=== PATIENT | male | born 1985 | race Caucasian/White ===

== ENCOUNTER 2017-11-20 08:38 | Emergency (ER) | payer SELFPAY ==
[~2017-11-20] VITALS: Ht 180.3 cm; Wt 79.8 kg
[~2017-11-20 08:38] MED LIST: CEP250 PO; CEP500 PO; CYCL10TA29 PO; DIA5 PO; DIVA500T98 PO; GABA-549 PO; HYDR-3087 PO; KET10 PO; LACO150T4 PO; LAMO150T36 PO; LAMOT150PT PO; LEVE-14 PO; LEVE750T48 PO; LOR5/325 PO; MECL-81 PO; METH4TAB66 PO; OMEP-218 PO; OMEP40CA48 PO; OMEP40CA79 PO; ONDA4TAB PO; OXYC-865 PO; PAN40 PO; PER PO; POTA20TA85 PO; RAN150 PO; RANI-315 PO; SEIZURE PO; SUCR1ORA13 PO; SUCR1TAB51 PO; TUM500 PO; VENL37.594 PO
--- NOTE | 2017-11-20 08:57 | ER Report ---
History and Physical Time Seen By MD: 08:52 Hx. of Stated Complaint: PATIENT STATES THAT HE HAD ALOT OF SEIZURES LAST NIGHT AND STATES THAT HE FEELS OUT OF IT RIGHT NOW WITH AN HEAD ACHE HPI/ROS CC: Seizure HPI: 31-year-old male with a past medical history of seizures versus pseudoseizures. He was last in the emergency department on 11/19/2016 for the same complaint. He was started on That time. He was referred to neurology for continued workup. He presents today stating that he had multiple seizures last night. He does appear to be slightly postictal. There was no loss of bowel or bladder and no oral lacerations or biting of the tongue or cheek. Patient states that he has not been taking his Keppra due to financial reasons. He states that it spent 3 days since he's had his Keppra. He does smell like alcohol. He also is on narcotics for back pain. Pupils are constricted but reactive. He is alert and oriented by 3. [place] Coma Scale is 15. She is stating that he has generalized muscular body aches secondary to his repeated seizures. He is rating his body aches as a 6-7 out of 10. Aching in nature constant. No alleviating factors. ROS: 12 point review of systems essentially negative other than what's mentioned in history of present illness. NURSES AND OLD MEDICAL RECORDS: Reviewed PMH: Reviewed SURGICAL HX: Reviewed FAMILY HX: Noncontributory SOCIAL HX: Patient continues to drink alcohol and denies illicit drugs. VITAL SIGNS: Reviewed CONSTITUTIONAL: 31-year-old male who is intoxicated but also appears postictal. PHYSICAL EXAM: HEENT: Pupils equal round reactive to light and accommodate, EOMI, tympanic membranes pearly white umbo present with good light reflex. Lips dry mucous membranes moist gums nonbleeding uvula midline and rises equally with phonation, oropharynx noninjected, teeth intact. NECK: Neck supple, thyroid not appreciated, anterior and posterior cervical lymphadenopathy not appreciated. Trachea midline and rises equally with phonation. CARDIAC: S1-S2 regular rate rhythm no murmurs rubs or gallops. LUNGS: Lungs clear bilaterally posteriorly in all martinez. Good air movement. ABDOMEN: Abdomen soft, nondistended, bowel sounds active in all 4 quadrants, no bruits noted, no CVA tenderness. MUSCULOSKELETAL: Strength 5 out of 5 x 4 extremities, no deformities noted. NEUROLOGIC: Patient alert and oriented by 3. Cranial nerves II through XII are intact. Allergies: Coded Allergies: fentanyl (Verified Allergy, Unknown, 11/17/17) ketorolac (Verified Allergy, Unknown, 11/17/17) Home Meds Active Scripts Oxycodone Hcl/Acetaminophen (PERCOCET 5-325 MG TABLET) 1 Each Tablet, 1 EACH PO Q6H for PAIN, #40 TAB 0 Refills Prov:ALLIE TAYLOR MD 11/17/17 Diazepam (VALIUM) 5 Mg Tablet, 5 MG PO 2-3XD, #30 TAB 0 Refills Prov:ALLIE TAYLOR MD 11/17/17 Methylprednisolone (METHYLPREDNISOLONE) 4 Mg Tab.ds.pk, 4 MG PO DIRECTED, #1 PACK 0 Refills Prov:SHEELA RODRIGUEZ MD 11/12/17 Cyclobenzaprine Hcl (CYCLOBENZAPRINE HCL) 10 Mg Tablet, 10 MG PO Q8H Y for MUSCLE SPASMS, #20 TAB 0 Refills Prov:SHEELA RODRIGUEZ MD 11/12/17 Gabapentin (GABAPENTIN) 300 Mg Capsule, 300 MG PO DIRECTED, #150 CAPSULE Take 1 tab in the morning and at lunch and then 3 tabs at night. Prov:MYCHAL GARCIA [facility] 11/18/16 Lamotrigine (LAMICTAL) 150 Mg Tablet, 150 MG PO BID, #60 TAB Prov:MYCHAL GARCIA [facility] 11/18/16 Reported Medications Lacosamide (VIMPAT) 150 Mg Tablet, 150 MG PO DAILY 05/29/16 Omeprazole Magnesium (Prilosec Otc) 20 Mg Tablet.dr, 20 MG PO QDAY, 0 Refills 01/09/11 Discontinued Scripts Ondansetron (ZOFRAN ODT) 4 Mg Tab.rapdis, 4 MG PO Q6H Y for NAUSEA/VOMITING, # 20 TAB.MIGUE 0 Refills Prov:SHEELA RODRIGUEZ MD 11/12/17 Levetiracetam (LEVETIRACETAM) 750 Mg Tablet, 750 MG PO BID, #60 TAB Prov:MYCHAL GARCIA [facility] 11/18/16 Hydrocodone Bit/Acetaminophen (HYDROCODON-ACETAMINOPHEN 5-325) 1 Each Tablet, 1 EACH PO Q4H Y for PAIN, #12 TAB 0 Refills Prov:SHEELA RODRIGUEZ MD 11/12/17 Hx Smoking: Yes Smoking Status: Current: Some Days Smoker Exposure to Second Hand Smoke?: Yes Hx Substance Use Disorder: No Hx Alcohol Use: No Constitutional Vital Sign - Last 24 Hours 11/20/17 11/20/17 11/20/17 11/20/17 08:44 08:45 09:00 09:08 Temp 98.5 Pulse 79 82 Resp 18 15 B/P (MAP) 130/86 (101) 130/86 108/90 (96) Pulse Ox 95 93 O2 Delivery Room Air 11/20/17 09:34 O2 Flow Rate 1.0 Intake and Output 11/20/17 11/20/17 11/21/17 15:00 23:00 07:00 Intake Total 1110 ml Balance 1110 ml Medical Decision Making Data Points Result Diagram: 11/20/1715 11/20/17914 Laboratory Hematology Test 11/20/17 05:43 11/20/17 09:15 Urine Opiates Screen Positive Urine Barbiturates Screen Negative Ur Tricyclic Antidepressants Screen Negative Urine Phencyclidine Screen Negative Urine Amphetamines Screen Negative Urine Benzodiazepines Screen Positive Urine Cocaine Screen Negative Urine Cannabinoids Screen Positive Red Blood Count 4.65 M/uL (4.00-5.60) Mean Corpuscular Volume 96.8 fL (80.0-96.0) Mean Corpuscular Hemoglobin 33.4 pg (26.0-33.0) Mean Corpuscular Hemoglobin Concent 34.5 g/dL (32.0-36.0) Red Cell Distribution Width 13.1 % (11.5-14.5) Mean Platelet Volume 7.6 fL (7.2-11.1) Neutrophils (%) (Auto) 74.2 % (39.4-72.5) Lymphocytes (%) (Auto) 21.0 % (17.6-49.6) Monocytes (%) (Auto) 4.0 % (4.1-12.4) Eosinophils (%) (Auto) 0.5 % (0.4-6.7) Basophils (%) (Auto) 0.3 % (0.3-1.4) Nucleated RBC Relative Count (auto) 0.0 /100WBC Neutrophils # (Auto) 10.1 K/uL (2.0-7.4) Lymphocytes # (Auto) 2.9 K/uL (1.3-3.6) Monocytes # (Auto) 0.5 K/uL (0.3-1.0) Eosinophils # (Auto) 0.1 K/uL (0.0-0.5) Basophils # (Auto) 0.0 K/uL (0.0-0.1) Nucleated RBC Absolute Count (auto) 0.00 K/uL Peripheral Blood Smear No Y/N Sodium Level 141 mmol/L (137-145) Potassium Level 4.0 mmol/L (3.5-5.0) Chloride Level 103 mmol/L (98-107) Carbon Dioxide Level 26 mmol/L (22-30) Blood Urea Nitrogen 10 mg/dl (9-21) Creatinine 0.70 mg/dl (0.66-1.25) Glomerular Filtration Rate Calc > 60.0 Random Glucose 117 mg/dl (75-110) Lactate 2.2 mmol/L (0.7-2.1) Calcium Level 9.2 mg/dl (8.4-10.2) Magnesium Level 1.8 mg/dl (1.7-2.2) Total Bilirubin 0.5 mg/dl (0.2-1.3) Aspartate Amino Transf (AST/SGOT) 21 U/L (0-35) Alanine Aminotransferase (ALT/SGPT) 24 U/L (0-56) Alkaline Phosphatase 65 U/L (0-126) Total Protein 7.0 gm/dl (6.3-8.2) Albumin 4.2 g/dl (3.5-5.0) Carbamazepine (Tegretol) Level < 3.0 ug/ml Carbamazepine Time Since Last Dose ? Carbamazepine Last Dose Date unknown Serum Alcohol 46 mg/dl Chemistry Test 11/20/17 05:43 11/20/17 09:15 Urine Opiates Screen Positive Urine Barbiturates Screen Negative Ur Tricyclic Antidepressants Screen Negative Urine Phencyclidine Screen Negative Urine Amphetamines Screen Negative Urine Benzodiazepines Screen Positive Urine Cocaine Screen Negative Urine Cannabinoids Screen Positive White Blood Count 13.7 k/uL (4.5-11.0) Red Blood Count 4.65 M/uL (4.00-5.60) Hemoglobin 15.5 g/dL (14.0-18.0) Hematocrit 45.0 % (42.0-52.0) Mean Corpuscular Volume 96.8 fL (80.0-96.0) Mean Corpuscular Hemoglobin 33.4 pg (26.0-33.0) Mean Corpuscular Hemoglobin Concent 34.5 g/dL (32.0-36.0) Red Cell Distribution Width 13.1 % (11.5-14.5) Platelet Count 297 K/uL (150-450) Mean Platelet Volume 7.6 fL (7.2-11.1) Neutrophils (%) (Auto) 74.2 % (39.4-72.5) Lymphocytes (%) (Auto) 21.0 % (17.6-49.6) Monocytes (%) (Auto) 4.0 % (4.1-12.4) Eosinophils (%) (Auto) 0.5 % (0.4-6.7) Basophils (%) (Auto) 0.3 % (0.3-1.4) Nucleated RBC Relative Count (auto) 0.0 /100WBC Neutrophils # (Auto) 10.1 K/uL (2.0-7.4) Lymphocytes # (Auto) 2.9 K/uL (1.3-3.6) Monocytes # (Auto) 0.5 K/uL (0.3-1.0) Eosinophils # (Auto) 0.1 K/uL (0.0-0.5) Basophils # (Auto) 0.0 K/uL (0.0-0.1) Nucleated RBC Absolute Count (auto) 0.00 K/uL Peripheral Blood Smear No Y/N Glomerular Filtration Rate Calc > 60.0 Lactate 2.2 mmol/L (0.7-2.1) Calcium Level 9.2 mg/dl (8.4-10.2) Magnesium Level 1.8 mg/dl (1.7-2.2) Total Bilirubin 0.5 mg/dl (0.2-1.3) Aspartate Amino Transf (AST/SGOT) 21 U/L (0-35) Alanine Aminotransferase (ALT/SGPT) 24 U/L (0-56) Alkaline Phosphatase 65 U/L (0-126) Total Protein 7.0 gm/dl (6.3-8.2) Albumin 4.2 g/dl (3.5-5.0) Carbamazepine (Tegretol) Level < 3.0 ug/ml Carbamazepine Time Since Last Dose ? Carbamazepine Last Dose Date unknown Serum Alcohol 46 mg/dl Toxicology Test 11/20/17 05:43 11/20/17 09:15 Urine Opiates Screen Positive Urine Barbiturates Screen Negative Ur Tricyclic Antidepressants Screen Negative Urine Phencyclidine Screen Negative Urine Amphetamines Screen Negative Urine Benzodiazepines Screen Positive Urine Cocaine Screen Negative Urine Cannabinoids Screen Positive Carbamazepine (Tegretol) Level < 3.0 ug/ml Carbamazepine Time Since Last Dose ? Carbamazepine Last Dose Date unknown Serum Alcohol 46 mg/dl ED Course/Re-evaluation ED Course UDS positive for opioids and benzodiazepines, cannabinoids, alcohol. Patient requesting pain medication. Patient states that he wants ibuprofen but he is reportedly allergic to Ketalorac. Patient received Cerebyx 500 mg. The patient was instructed to meat pickler his Keppra medication. He is also instructed to follow -up with his PCP. Patient will plan and agreement. I called her pharmacy and his scripts are active but he has not picked them up. Re-evaluation Medical decision making. Seizures versus pseudoseizures. Patient with illicit drugs and alcohol. Decision to Disposition Date: Nov 20, 2017 Decision to Disposition Time: 10:41 Depart Departure Latest Vital Signs Vital Signs Date Time Temp Pulse Resp B/P (MAP) Pulse Ox O2 Delivery O2 Flow Rate FiO2 11/20/17 09:34 1.0 11/20/17 09:08 82 15 93 11/20/17 09:00 108/90 (96) 11/20/17 08:45 98.5 Room Air Impression: Primary Impression: Pseudoseizure Condition: Improved Disposition: HOME OR SELF-CARE Patient Instructions: Recurrent Seizures in Adults (ED) Additional Instructions: You have prescriptions at the pharmacy. 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 Follow-up with the regular physician. You are allergic to Toradol therefore I cannot give you ibuprofen as it is in the same family. I and the staff wanted to thank you for allowing us to take care of your needs today in the emergency department at [facility]. We have tried to answer all of your questions and concerns. Please feel free to return to the emergency department for any further concerns or unanswered questions. JAMES FARMER MD Nov 20, 2017 08:57
[2017-11-20] MEDS ORDERED: NS(*) 0.9% 1000 ML BAG 1,000 ML IV ONE (09:03)
[2017-11-20] MEDS ORDERED: FOSPHENYTOIN(*) 500 MG/10 ML V 500 MG in NS(*) 0.9% 100 ML BAG 100 ML IVPB ONE (09:05)
[2017-11-20 09:25] LABS: PLATELET COUNT, AUTOMATED 297 K/uL (150-450)
[2017-11-20 10:30] VITALS: BP 112/77
== END 2017-11-20 10:56 | disposition home or self-care (01) ==
LOC: ER 08:49
DX: R56.9 Unspecified convulsions (principal)
CPT/HCPCS: 80156; 80177; 80305; 80320; 83605; 83735; 84146; 85025; 96365; 99284; J7030; J7050; Q2009; 82040; 82247; 82310; 82374; 82435; 82565; 82947; 84075; 84132; 84155; 84295; 84450; 84460; 84520

== ENCOUNTER 2018-02-27 14:23 | Emergency (ER) | payer SELFPAY ==
[2018-02-27] MEDS ORDERED: ESOM40CA42 PO (14:34)
[2018-02-27] MEDS ORDERED: NS(*) 0.9% 1000 ML BAG 1,000 ML IV ONE (14:52)
[2018-02-27 15:11] LABS: PLATELET COUNT, AUTOMATED 220 K/uL (150-450)
[2018-02-27] MEDS ORDERED: ONDANSETRON 4 MG/2 ML VIAL IVP ONE (15:20)
[2018-02-27] MEDS ORDERED: IOPAMIDOL 76% 75 ML INFUS BTL 75 ML ONE (15:31)
[2018-02-27] MEDS ORDERED: LIDOCAINE 2% VISC SLN 15ML UDC PO ONE (15:45)
[2018-02-27] MEDS ORDERED: MAG HYD/AL HYD/SIMETH 30ML UDC PO ONE (15:45)
--- NOTE | 2018-02-27 15:54 | RADIOLOGY IMAGING REPORT ---
FACILITY: [facility] - [place], [place] PATIENT NAME: Gaudencio Hemphill : 1985 MR: [id number] V: [id number] EXAM DATE: ORDERING PHYSICIAN: MYCHAL GARCIA TECHNOLOGIST: Location: [facility] Patient: Gaudencio Hemphill : 1985 Visit/Account:[id number] Date of Sevice: 02/27/2018 EXAMINATION: CT abdomen and pelvis with IV contrast HISTORY: Abdominal pain. TECHNIQUE: Axial CT images of the abdomen and pelvis were obtained with IV contrast, with coronal a nd sagittal 2D reconstructed images. One of the following dose optimization techniques was utilized in the performance of this exam: Autom ated exposure control; adjustment of the mA and/or kV according to the patient's size; or use of an i terative reconstruction technique. Specific details can be referenced in the facility's radiology C T exam operational policy. Contrast: 75 mL of IV [id number]-[id number]. COMPARISON: None. FINDINGS: Liver: Negative. Gallbladder and bile ducts: Cholecystectomy. No bile duct dilatation. Spleen: Negative. Pancreas: Negative. Adrenal glands: Negative. Kidneys: Negative. No hydronephrosis or urinary calculi. The kidneys enhance normally. Bowel and peritoneum: The small bowel and colon are normal in caliber, without evidence of obstructi on or any focal inflammatory process. Unremarkable appendix in the right pelvis. No free fluid or arnaldo e intraperitoneal air. Pelvic structures: Negative. Lymph node assessment: Negative. Vessels: Negative. Musculoskeletal: Negative. Body wall: Negative. Lung bases: Negative. IMPRESSION: 1. No CT evidence of acute intra-abdominal pathology. No source of abdominal pain is identified. 2. Normal appendix. 3. Prior cholecystectomy. Report Dictated By: Donnie Castillo MD at 02/27/2018 3:45 PM Report E-Signed By: Donnie Castillo MD at 02/27/2018 3:49 PM WSN:[id number]
[2018-02-27] MEDS ORDERED: SUCR1TAB85 PO (16:35)
[2018-02-27] MEDS ORDERED: OMEP40CA48 PO (16:35)
--- NOTE | 2018-02-27 16:38 | ER Report ---
History and Physical Time Seen By MD: 14:45 Hx. of Stated Complaint: pt reports epigastric pain for 1.5 weeks, dark red blood in stool HPI/ROS CHIEF COMPLAINT: Abdominal pain HISTORY OF PRESENT ILLNESS: 32-year-old male patient presents to emergency room with complaint of epigastric abdominal pain. Patient states this been going on for the past 10 days. He states this seems even worse. He also has noticed blood in his stool. He states that he has had dark red blood in his stool for the last several days. Patient states that he does have a history of a cholecystectomy. He states he does have his appendix. He denies having any fevers, chills. Patient states he has been taking omeprazole. He states his also been taking Carafate twice a day. He states that his been no improvement with that. REVIEW OF SYSTEMS: Respiratory: No cough, no dyspnea. Cardiovascular: No chest pain, no palpitations. Gastrointestinal: As noted above Musculoskeletal: No back pain. Allergies: Coded Allergies: fentanyl (Verified Allergy, Unknown, 02/27/18) ketorolac (Verified Allergy, Unknown, 02/27/18) Home Meds Active Scripts Promethazine Hcl (PROMETHAZINE HCL) 25 Mg Tablet, 25 MG PO Q8H Y for NAUSEA/ VOMITING, #12 TAB Prov:MY[facility]AL GARCIA [facility] 02/27/18 Omeprazole (OMEPRAZOLE) 40 Mg Capsule.dr, 40 MG PO BID, #60 CAP Prov:MYCHAL GARCIA [facility] 02/27/18 Sucralfate (CARAFATE) 1 Gm Tablet, 1 GM PO QID, #60 TAB Take before meals and at bedtime. Crush the tablet and mix with water before taking. Prov:MYCHAL GARCIA [facility] 02/27/18 Gabapentin (GABAPENTIN) 300 Mg Capsule, 300 MG PO DIRECTED, #150 CAPSULE Take 1 tab in the morning and at lunch and then 3 tabs at night. Prov:MYCHAL GARCIA [facility] 11/18/16 Lamotrigine (LAMICTAL) 150 Mg Tablet, 150 MG PO BID, #60 TAB Prov:MYCHAL GARCIA [facility] 11/18/16 Reported Medications Esomeprazole Magnesium (NEXIUM) 40 Mg Capsule.dr, 1 CAP PO QDAY, CAP 02/27/18 Lacosamide (VIMPAT) 150 Mg Tablet, 150 MG PO DAILY 05/29/16 Omeprazole Magnesium (Prilosec Otc) 20 Mg Tablet.dr, 20 MG PO QDAY, 0 Refills 01/09/11 Discontinued Scripts Oxycodone Hcl/Acetaminophen (PERCOCET 5-325 MG TABLET) 1 Each Tablet, 1 EACH PO Q6H for PAIN, #40 TAB 0 Refills Prov:ALLIE TAYLOR MD 11/17/17 Diazepam (VALIUM) 5 Mg Tablet, 5 MG PO 2-3XD, #30 TAB 0 Refills Prov:ALLIE TALYOR MD 11/17/17 Methylprednisolone (METHYLPREDNISOLONE) 4 Mg Tab.ds.pk, 4 MG PO DIRECTED, #1 PACK 0 Refills Prov:SHEELA RODRIGUEZ MD 11/12/17 Cyclobenzaprine Hcl (CYCLOBENZAPRINE HCL) 10 Mg Tablet, 10 MG PO Q8H Y for MUSCLE SPASMS, #20 TAB 0 Refills Prov:SHEELA RODRIGUEZ MD 11/12/17 Past Medical/Surgical History Patient has past medical history of TBI, seizures, or soft tissues, pancreatitis , reflux, back pain. Patient has a surgical history of elbow surgery. Patient has a family medical history of cancer. Reviewed Nurses Notes: Yes Hx Smoking: Yes Smoking Status: Current: Some Days Smoker Exposure to Second Hand Smoke?: Yes Hx Substance Use Disorder: No Hx Alcohol Use: No Constitutional Vital Sign - Last 24 Hours 02/27/18 02/27/18 02/27/18 02/27/18 14:23 14:29 14:38 14:53 Temp 98.0 Pulse 69 81 83 Resp 16 B/P (MAP) 146/92 146/92 (110) Pulse Ox 93 94 95 O2 Delivery Room Air 02/27/18 02/27/18 02/27/18 02/27/18 15:00 15:08 15:13 15:18 Pulse 71 70 75 B/P (MAP) 131/86 (101) Pulse Ox 95 92 98 02/27/18 02/27/18 15:48 16:42 Pulse 71 77 Resp 16 B/P (MAP) 136/72 (93) Pulse Ox 95 93 O2 Delivery Room Air Physical Exam General Appearance: The patient is alert, has no immediate need for airway protection and no current signs of toxicity. Appears uncomfortable, patient was rubbing his abdomen. Respiratory: Chest is non tender, lungs are clear to auscultation. Cardiac: regular rate and rhythm Gastrointestinal: Abdomen is soft and tender in the epigastric and right upper quadrant, no masses, bowel sounds normal. Musculoskeletal: Neck: Neck is supple and non tender. Extremities have full range of motion and are non tender. Skin: No rashes or lesions. DIFFERENTIAL DIAGNOSIS: After history and physical exam differential diagnosis was considered for abdominal pain including but not limited to appendicitis, cholecystitis, gastritis and urinary tract infection. Included differential is pancreatitis, GI bleed. Medical Decision Making Data Points Result Diagram: 02/27/18 1440 02/27/18 1440 Laboratory Hematology Test 02/27/18 14:40 02/27/18 16:08 Red Blood Count 4.12 M/uL (4.00-5.60) Mean Corpuscular Volume 96.7 fL (80.0-96.0) Mean Corpuscular Hemoglobin 34.6 pg (26.0-33.0) Mean Corpuscular Hemoglobin Concent 35.8 g/dL (32.0-36.0) Red Cell Distribution Width 12.4 % (11.5-14.5) Mean Platelet Volume 8.3 fL (7.2-11.1) Neutrophils (%) (Auto) 53.1 % (39.4-72.5) Lymphocytes (%) (Auto) 39.8 % (17.6-49.6) Monocytes (%) (Auto) 5.5 % (4.1-12.4) Eosinophils (%) (Auto) 1.1 % (0.4-6.7) Basophils (%) (Auto) 0.5 % (0.3-1.4) Nucleated RBC Relative Count (auto) 0.0 /100WBC Neutrophils # (Auto) 4.1 K/uL (2.0-7.4) Lymphocytes # (Auto) 3.1 K/uL (1.3-3.6) Monocytes # (Auto) 0.4 K/uL (0.3-1.0) Eosinophils # (Auto) 0.1 K/uL (0.0-0.5) Basophils # (Auto) 0.0 K/uL (0.0-0.1) Nucleated RBC Absolute Count (auto) 0.00 K/uL Urine Color Yellow Urine Clarity Slightly-cloudy Urine pH 5.0 pH (4.8-9.5) Urine Specific [place] 1.020 Urine Protein Negative mg/dL (NEGATIVE) Urine Glucose (UA) Negative mg/dL (NEGATIVE) Urine Ketones Negative mg/dL (NEGATIVE) Urine Blood Negative (NEGATIVE) Urine Nitrite Negative (NEGATIVE) Urine Bilirubin Negative (NEGATIVE) Urine Urobilinogen Negative mg/dL (0.2-1.9) Urine Leukocyte Esterase Negative (NEGATIVE) Urine RBC 1 /HPF (0-2/HPF) Urine WBC 1 /HPF (0-5/HPF) Urine Squamous Epithelial Cells None /LPF (</=FEW) Urine Bacteria Negative /HPF (NONE-FEW) Urine Mucus Few /HPF (NONE-FEW) Sodium Level 138 mmol/L (137-145) Potassium Level 3.4 mmol/L (3.5-5.0) Chloride Level 102 mmol/L (98-107) Carbon Dioxide Level 22 mmol/L (22-30) Blood Urea Nitrogen 12 mg/dl (9-21) Creatinine 0.70 mg/dl (0.66-1.25) Glomerular Filtration Rate Calc > 60.0 Random Glucose 137 mg/dl (75-110) Calcium Level 8.6 mg/dl (8.4-10.2) Total Bilirubin 0.3 mg/dl (0.2-1.3) Aspartate Amino Transf (AST/SGOT) 19 U/L (0-35) Alanine Aminotransferase (ALT/SGPT) 20 U/L (0-56) Alkaline Phosphatase 46 U/L (0-126) C-Reactive Protein < 0.5 mg/dl (<1.0) Total Protein 6.5 gm/dl (6.3-8.2) Albumin 3.8 g/dl (3.5-5.0) Amylase Level 132 U/L (0-110) Lipase 295 U/L (23-300) Stool Occult Blood (IFOB) Positive (NEGATIVE) Chemistry Test 02/27/18 14:40 02/27/18 16:08 White Blood Count 7.7 k/uL (4.5-11.0) Red Blood Count 4.12 M/uL (4.00-5.60) Hemoglobin 14.3 g/dL (14.0-18.0) Hematocrit 39.9 % (42.0-52.0) Mean Corpuscular Volume 96.7 fL (80.0-96.0) Mean Corpuscular Hemoglobin 34.6 pg (26.0-33.0) Mean Corpuscular Hemoglobin Concent 35.8 g/dL (32.0-36.0) Red Cell Distribution Width 12.4 % (11.5-14.5) Platelet Count 220 K/uL (150-450) Mean Platelet Volume 8.3 fL (7.2-11.1) Neutrophils (%) (Auto) 53.1 % (39.4-72.5) Lymphocytes (%) (Auto) 39.8 % (17.6-49.6) Monocytes (%) (Auto) 5.5 % (4.1-12.4) Eosinophils (%) (Auto) 1.1 % (0.4-6.7) Basophils (%) (Auto) 0.5 % (0.3-1.4) Nucleated RBC Relative Count (auto) 0.0 /100WBC Neutrophils # (Auto) 4.1 K/uL (2.0-7.4) Lymphocytes # (Auto) 3.1 K/uL (1.3-3.6) Monocytes # (Auto) 0.4 K/uL (0.3-1.0) Eosinophils # (Auto) 0.1 K/uL (0.0-0.5) Basophils # (Auto) 0.0 K/uL (0.0-0.1) Nucleated RBC Absolute Count (auto) 0.00 K/uL Urine Color Yellow Urine Clarity Slightly-cloudy Urine pH 5.0 pH (4.8-9.5) Urine Specific [place] 1.020 Urine Protein Negative mg/dL (NEGATIVE) Urine Glucose (UA) Negative mg/dL (NEGATIVE) Urine Ketones Negative mg/dL (NEGATIVE) Urine Blood Negative (NEGATIVE) Urine Nitrite Negative (NEGATIVE) Urine Bilirubin Negative (NEGATIVE) Urine Urobilinogen Negative mg/dL (0.2-1.9) Urine Leukocyte Esterase Negative (NEGATIVE) Urine RBC 1 /HPF (0-2/HPF) Urine WBC 1 /HPF (0-5/HPF) Urine Squamous Epithelial Cells None /LPF (</=FEW) Urine Bacteria Negative /HPF (NONE-FEW) Urine Mucus Few /HPF (NONE-FEW) Glomerular Filtration Rate Calc > 60.0 Calcium Level 8.6 mg/dl (8.4-10.2) Total Bilirubin 0.3 mg/dl (0.2-1.3) Aspartate Amino Transf (AST/SGOT) 19 U/L (0-35) Alanine Aminotransferase (ALT/SGPT) 20 U/L (0-56) Alkaline Phosphatase 46 U/L (0-126) C-Reactive Protein < 0.5 mg/dl (<1.0) Total Protein 6.5 gm/dl (6.3-8.2) Albumin 3.8 g/dl (3.5-5.0) Amylase Level 132 U/L (0-110) Lipase 295 U/L (23-300) Stool Occult Blood (IFOB) Positive (NEGATIVE) Urinalysis Test 02/27/18 14:40 Urine Color Yellow Urine Clarity Slightly-cloudy Urine pH 5.0 pH (4.8-9.5) Urine Specific [place] 1.020 Urine Protein Negative mg/dL (NEGATIVE) Urine Glucose (UA) Negative mg/dL (NEGATIVE) Urine Ketones Negative mg/dL (NEGATIVE) Urine Blood Negative (NEGATIVE) Urine Nitrite Negative (NEGATIVE) Urine Bilirubin Negative (NEGATIVE) Urine Urobilinogen Negative mg/dL (0.2-1.9) Urine Leukocyte Esterase Negative (NEGATIVE) Urine RBC 1 /HPF (0-2/HPF) Urine WBC 1 /HPF (0-5/HPF) Urine Squamous Epithelial Cells None /LPF (</=FEW) Urine Bacteria Negative /HPF (NONE-FEW) Urine Mucus Few /HPF (NONE-FEW) EKG/Imaging Imaging EXAMINATION: CT abdomen and pelvis with IV contrast HISTORY: Abdominal pain. TECHNIQUE: Axial CT images of the abdomen and pelvis were obtained with IV contrast, with coronal and sagittal 2D reconstructed images. One of the following dose optimization techniques was utilized in the performance of this exam: Automated exposure control; adjustment of the mA and/ or kV according to the patient's size; or use of an iterative reconstruction technique. Specific details can be referenced in the facility's radiology CT exam operational policy. Contrast: 75 mL of IV [id number]. COMPARISON: None. FINDINGS: Liver: Negative. Gallbladder and bile ducts: Cholecystectomy. No bile duct dilatation. Spleen: Negative. Pancreas: Negative. Adrenal glands: Negative. Kidneys: Negative. No hydronephrosis or urinary calculi. The kidneys enhance normally. Bowel and peritoneum: The small bowel and colon are normal in caliber, without evidence of obstruction or any focal inflammatory process. Unremarkable appendix in the right pelvis. No free fluid or free intraperitoneal air. Pelvic structures: Negative. Lymph node assessment: Negative. Vessels: Negative. Musculoskeletal: Negative. Body wall: Negative. Lung bases: Negative. IMPRESSION: 1. No CT evidence of acute intra-abdominal pathology. No source of abdominal pain is identified. 2. Normal appendix. 3. Prior cholecystectomy. Report Dictated By: Donnie Castillo MD at 02/27/2018 3:45 PM Report E-Signed By: Donnie Castillo MD at 02/27/2018 3:49 PM ED Course/Re-evaluation ED Course Patient was admitted to exam room, history and physical were obtained. Differential diagnoses were considered. On examination patient has tenderness to the epigastric and right upper quadrant. A CBC, CMP, urinalysis, CT scan of the abdomen and pelvis, amylase, lipase were done. Lab results were unremarkable , patient did have an occult positive stool. CT scan of abdomen and pelvis showed no acute findings. I believe that he does have an ulcer which is causing the GI bleed. We will go ahead and put him on omeprazole 40 mg twice a day, as patient is currently taking 40 mg a day. We will also have him take Carafate 4 times a day, he states he is currently taking it twice a day and has for last few days. Patient is follow-up with either the general surgeons here in [facility] or his follow-up with gastroenterology in [place]. Patient did ask if her one to give him anything for his abdominal pain. I informed him that I'm not finding any cause to treat the abdominal pain with narcotic pain medication. After discussing the findings with the patient. The patient did DC his own IV and left the department before receiving his discharge instructions. Decision to Disposition Date: Feb 27, 2018 Decision to Disposition Time: 16:37 Depart Departure Latest Vital Signs Vital Signs Date Time Temp Pulse Resp B/P (MAP) Pulse Ox O2 Delivery O2 Flow Rate FiO2 02/27/18 16:42 77 16 136/72 (93) 93 Room Air 02/27/18 14:23 98.0 Impression: Primary Impression: Gastrointestinal bleeding Condition: Improved Disposition: HOME OR SELF-CARE Referrals: MARCOS ZAMORA MD,CANDICE James MD New Scripts Promethazine Hcl (PROMETHAZINE HCL) 25 Mg Tablet 25 MG PO Q8H Y for NAUSEA/VOMITING, #12 TAB Prov: MY[facility] 02/27/18 Omeprazole (OMEPRAZOLE) 40 Mg Capsule.dr 40 MG PO BID, #60 CAP Prov: MYCHAL [facility] 02/27/18 Sucralfate (CARAFATE) 1 Gm Tablet 1 GM PO QID, #60 TAB Take before meals and at bedtime. Crush the tablet and mix with water before taking. Prov: MY[facility]AL [facility] 02/27/18 Patient Instructions: Gastrointestinal Bleeding (ED) Additional Instructions: Increase fluid intake. Get plenty of rest. Follow up with a general surgeon here in [place] (Dr. Zamora or Dr. Calderón) or a enterprise resource planner in [place]. Avoid foods that make the pain worse. Take Tylenol as needed for pain. Take the Omeprazole 40mg twice a day and the Carafate (Sucralfate) 4 times a day , with meals and then at bedtime. Return to the ER if condition worsens. Problem Qualifiers Primary Impression: Gastrointestinal bleeding GI bleed type/associated pathology: unspecified gastrointestinal hemorrhage type Qualified Codes: K92.2 - Gastrointestinal hemorrhage, unspecified MYCHAL GARC[facility] Feb 27, 2018 16:38
[2018-02-27 16:42] VITALS: BP 136/72
[2018-02-27] MEDS ORDERED: PROM-110 PO (16:44)
== END 2018-02-27 16:43 | disposition home or self-care (01) ==
LOC: ER 14:32
DX: K92.2 Gastrointestinal hemorrhage, unspecified (principal)
CPT/HCPCS: 74177; 81001; 82150; 82274; 83690; 85025; 86140; 96374; 99284; J2405; Q9967; 82040; 82247; 82310; 82374; 82435; 82565; 82947; 84075; 84132; 84155; 84295; 84450; 84460; 84520

== ENCOUNTER 2018-03-23 12:02 | Emergency (ER) | payer SELFPAY ==
[~2018-03-23 12:02] MED LIST changes: +ESOM40CA42 PO; +PROM-110 PO; +SUCR1TAB85 PO
--- NOTE | 2018-03-23 12:13 | ER Report ---
History and Physical Time Seen By MD: 12:10 Hx. of Stated Complaint: Patient complains of back pain and urinary incontinence and leg weakness and numbness and tingling to feet. States hx of back problems HPI/ROS CHIEF COMPLAINT: Back pain and urinary incontinence HISTORY OF PRESENT ILLNESS: This is a 32-year-old male who presents to the emergency department for back pain and urinary incontinence. Patient states that about 4 days ago he was lifting his daughters and exacerbated his lower back pain. Patient states that he was trying to manage this at home, he did "take a nap and when I woke up on a leak some urine" rate patient states that he 's been taking ibuprofen at home to try to help with the pain. No stool incontinence. Patient states that he does have pain down the front of his legs they go down to his feet. He also states that today while he was getting his daughters ready he once again "leaked" some urine. Patient denies aches, chills , nausea, vomiting, diarrhea. 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 REVIEW OF SYSTEMS: Constitutional: No fever, no chills. Eyes: No discharge. ENT: No sore throat. Cardiovascular: No chest pain, no palpitations. Respiratory: No cough, no shortness of breath. Gastrointestinal: No abdominal pain, no vomiting. Genitourinary: As above. Musculoskeletal: As above. Skin: No rashes. Neurological: As above. Allergies: Coded Allergies: fentanyl (Verified Allergy, Unknown, 03/23/18) ketorolac (Verified Allergy, Unknown, 03/23/18) Home Meds Active Scripts Prednisone (PREDNISONE) 20 Mg Tablet, 20 MG PO BID, #10 TAB Prov:RAQUEL CASEY [facility] 03/23/18 Lamotrigine (LAMICTAL) 150 Mg Tablet, 150 MG PO BID, #60 TAB Prov:MYCHAL [facility]ARCIA [facility] 11/18/16 Reported Medications Esomeprazole Magnesium (NEXIUM) 40 Mg Capsule.dr, 1 CAP PO QDAY, CAP 02/27/18 Lacosamide (VIMPAT) 150 Mg Tablet, 150 MG PO BID 05/29/16 Discontinued Reported Medications Omeprazole Magnesium (Prilosec Otc) 20 Mg Tablet.dr, 20 MG PO QDAY, 0 Refills 01/09/11 Discontinued Scripts Promethazine Hcl (PROMETHAZINE HCL) 25 Mg Tablet, 25 MG PO Q8H Y for NAUSEA/ VOMITING, #12 TAB Prov:MYCHAL [facility] 02/27/18 Omeprazole (OMEPRAZOLE) 40 Mg Capsule.dr, 40 MG PO BID, #60 CAP Prov:MYCHAL GARCIA [facility] 02/27/18 Sucralfate (CARAFATE) 1 Gm Tablet, 1 GM PO QID, #60 TAB Take before meals and at bedtime. Crush the tablet and mix with water before taking. Prov:MYCHAL GARCIA [facility] 02/27/18 Gabapentin (GABAPENTIN) 300 Mg Capsule, 300 MG PO DIRECTED, #150 CAPSULE Take 1 tab in the morning and at lunch and then 3 tabs at night. Prov:MYCHAL GARCIA [facility] 11/18/16 Past Medical/Surgical History And has a past medical and surgical history of medically Nutri, seizures, epilepsy, Silvestre's esophagus, pancreatitis, GERD, chronic back pain, cholecystectomy, elbow debridement 2. Reviewed Nurses Notes: Yes Hx Smoking: Yes Smoking Status: Current: Some Days Smoker Exposure to Second Hand Smoke?: Yes Hx Substance Use Disorder: No Hx Alcohol Use: No Constitutional Vital Sign - Last 24 Hours 03/23/18 03/23/18 03/23/18 03/23/18 12:06 12:08 12:30 12:32 Temp 98.3 Pulse 73 68 Resp 16 B/P (MAP) 141/63 141/63 (89) 132/93 (106) Pulse Ox 95 94 O2 Delivery Room Air 03/23/18 03/23/18 03/23/18 03/23/18 13:16 13:21 13:26 13:30 Pulse 69 71 B/P (MAP) 123/75 (91) 129/77 (94) Pulse Ox 94 95 03/23/18 03/23/18 03/23/18 03/23/18 13:31 13:36 13:41 13:46 Pulse 68 70 69 68 Pulse Ox 94 94 94 95 Physical Exam General Appearance: The patient is alert, has no immediate need for airway protection and no signs of toxicity. Eyes: Pupils equal and round no pallor or injection. ENT, Mouth: Mucous membranes are moist. Respiratory: There are no retractions, lungs are clear to auscultation. Cardiovascular: Regular rate and rhythm. Gastrointestinal: Abdomen is soft and non tender, no masses, bowel sounds normal. Neurological: Alert and oriented 4. Moving all extremities off the gurney against gravity, following all commands, no focal neuro deficits. No numbness or tingling. No saddle anesthesia. Skin: Warm and dry, no rashes. Musculoskeletal: Neck is supple non tender. No ice deformities, step-offs or contusions noted to the lower back, the muscles around the lumbar region are tight as compared to the left. Increased pain to the lower back with straight leg raise. Extremities are nontender, nonswollen and have full range of motion. DIFFERENTIAL DIAGNOSIS: After history and physical exam differential diagnosis was considered for back pain including but not limited to muscular pain, herniated disc, spine fracture, intra-abdominal causes and urinary tract infection. Medical Decision Making Data Points Laboratory Hematology Test 03/23/18 13:16 Urine Color Yellow Urine Clarity Slightly-cloudy Urine pH 7.0 pH (4.8-9.5) Urine Specific [place] 1.003 Urine Protein Negative mg/dL (NEGATIVE) Urine Glucose (UA) Negative mg/dL (NEGATIVE) Urine Ketones Negative mg/dL (NEGATIVE) Urine Blood Negative (NEGATIVE) Urine Nitrite Negative (NEGATIVE) Urine Bilirubin Negative (NEGATIVE) Urine Urobilinogen Negative mg/dL (0.2-1.9) Urine Leukocyte Esterase Negative (NEGATIVE) Urine RBC None /HPF (0-2/HPF) Urine WBC None /HPF (0-5/HPF) Urine Squamous Epithelial Cells None /LPF (</=FEW) Urine Bacteria Negative /HPF (NONE-FEW) Urine Mucus None /HPF (NONE-FEW) Chemistry Test 03/23/18 13:16 Urine Color Yellow Urine Clarity Slightly-cloudy Urine pH 7.0 pH (4.8-9.5) Urine Specific [place] 1.003 Urine Protein Negative mg/dL (NEGATIVE) Urine Glucose (UA) Negative mg/dL (NEGATIVE) Urine Ketones Negative mg/dL (NEGATIVE) Urine Blood Negative (NEGATIVE) Urine Nitrite Negative (NEGATIVE) Urine Bilirubin Negative (NEGATIVE) Urine Urobilinogen Negative mg/dL (0.2-1.9) Urine Leukocyte Esterase Negative (NEGATIVE) Urine RBC None /HPF (0-2/HPF) Urine WBC None /HPF (0-5/HPF) Urine Squamous Epithelial Cells None /LPF (</=FEW) Urine Bacteria Negative /HPF (NONE-FEW) Urine Mucus None /HPF (NONE-FEW) Urinalysis Test 03/23/18 13:16 Urine Color Yellow Urine Clarity Slightly-cloudy Urine pH 7.0 pH (4.8-9.5) Urine Specific [place] 1.003 Urine Protein Negative mg/dL (NEGATIVE) Urine Glucose (UA) Negative mg/dL (NEGATIVE) Urine Ketones Negative mg/dL (NEGATIVE) Urine Blood Negative (NEGATIVE) Urine Nitrite Negative (NEGATIVE) Urine Bilirubin Negative (NEGATIVE) Urine Urobilinogen Negative mg/dL (0.2-1.9) Urine Leukocyte Esterase Negative (NEGATIVE) Urine RBC None /HPF (0-2/HPF) Urine WBC None /HPF (0-5/HPF) Urine Squamous Epithelial Cells None /LPF (</=FEW) Urine Bacteria Negative /HPF (NONE-FEW) Urine Mucus None /HPF (NONE-FEW) EKG/Imaging Imaging Location: [facility] - [place], [place] Patient: Gaudencio Hemphill : 1985 Visit/Account:[id number] Date of Sevice: 03/23/2018 EXAMINATION: L SPINE W/O CONTRAST INDICATION: Back pain, urinary incontinence COMPARISON: 11/12/2017 TECHNIQUE: Multiplane MR imaging was performed through the lumbar spine without contrast. FINDINGS: Vertebral bodies: Normal Conus position/signal: Normal Marrow signal: Normal Extraspinal structures including psoas muscles/paraspinal soft tissues: Normal L1-2: Normal L2-3: Small disc protrusion is stable to slightly increased in size. Slight unchanged bilateral lateral recess narrowing. Normal foramen. L3-4: Normal L4-5: Unchanged disc desiccation. Unchanged posterior disc annular fissure and small unchanged disc protrusion. Mild unchanged right greater than left lateral recess narrowing. No significant foraminal narrowing. L5-S1: Minimal unchanged disc bulge, otherwise normal. IMPRESSION: 1. Unchanged posterior L4-5 disc annular fissure and small disc protrusion. This disc protrusion results in unchanged mild right greater than left lateral recess narrowing. 2. Slight unchanged bilateral L2-3 lateral recess narrowing secondary to small disc protrusion. 3. Otherwise unremarkable lumbar spine MR. Report Dictated By: Martín Salazar MD at 03/23/2018 1:31 PM Report E-Signed By: Martín Salazar MD at 03/23/2018 1:38 PM WSN:[id number] ED Course/Re-evaluation ED Course The patient was admitted to room. A history and physical were obtained. Differential diagnoses were considered. An MRI of the lumbar back is negative for any acute spinal cord injury, abscesses or bruising. The MRI is showing unchanged disc narrowing. The patient was given 100 mg of by mouth and Norflex. Negative UA. I did review these results with the patient. Residual urine post void was zero. I did sent an Rx for a prednisone burst to the patients pharmacy. The patient was instructed to follow up with a back or human resources operations specialist and establish with a primary care provider. The patient had no other questions or concerns at this time and discharged home. Patient was in agreement with this plan of care. Decision to Disposition Date: March 23, 2018 Decision to Disposition Time: 14:27 Depart Departure Latest Vital Signs Vital Signs Date Time Temp Pulse Resp B/P (MAP) Pulse Ox O2 Delivery O2 Flow Rate FiO2 03/23/18 13:46 68 95 03/23/18 13:30 129/77 (94) 03/23/18 12:06 98.3 16 Room Air Impression: Primary Impression: Back pain Condition: Improved Disposition: HOME OR SELF-CARE New Scripts Prednisone (PREDNISONE) 20 Mg Tablet 20 MG PO BID, #10 TAB Prov: RAQUEL CASEY-BC 03/23/18 Patient Instructions: Back Pain (ED) Additional Instructions: Drink plenty of water. Get plenty of rest. Take the medications as prescribed. Please establish with a primary care provider for reevaluation of the lower back. If you have continued lower back pain and discomfort considered following up with a spinal specialist such as Dr. Bonilla with [facility]. Return to the emergency department for any other concerns or worsening symptoms. Problem Qualifiers Primary Impression: Back pain Back pain location: low back pain Chronicity: chronic Back pain laterality : bilateral Sciatica presence: with sciatica Sciatica laterality: bilateral sciatica Qualified Codes: M54.42 - Lumbago with sciatica, left side ; M54.41 - Lumbago with sciatica, right side; G89.29 - Other chronic pain RAQUEL CASEY-MARY March 23, 2018 12:13
[2018-03-23] MEDS ORDERED: ORPHENADRINE CITR 100 MG TABSR PO ONE (12:25)
--- NOTE | 2018-03-23 13:42 | RADIOLOGY IMAGING REPORT ---
FACILITY: [facility] PATIENT NAME: Gaudencio Hemphill : 1985 MR: [id number] V: [id number] EXAM DATE: ORDERING PHYSICIAN: RAQUEL CASEY TECHNOLOGIST: Location: [facility] [place] Patient: Gaudencio Hemphill : 1985 Visit/Account:[id number] Date of Sevice: 03/23/2018 EXAMINATION: L SPINE W/O CONTRAST INDICATION: Back pain, urinary incontinence COMPARISON: 11/12/2017 TECHNIQUE: Multiplane MR imaging was performed through the lumbar spine without contrast. FINDINGS: Vertebral bodies: Normal Conus position/signal: Normal Marrow signal: Normal Extraspinal structures including psoas muscles/paraspinal soft tissues: Normal L1-2: Normal L2-3: Small disc protrusion is stable to slightly increased in size. Slight unchanged bilateral late ral recess narrowing. Normal foramen. L3-4: Normal L4-5: Unchanged disc desiccation. Unchanged posterior disc annular fissure and small unchanged disc protrusion. Mild unchanged right greater than left lateral recess narrowing. No significant foramin al narrowing. L5-S1: Minimal unchanged disc bulge, otherwise normal. IMPRESSION: 1. Unchanged posterior L4-5 disc annular fissure and small disc protrusion. This disc protrusion re sults in unchanged mild right greater than left lateral recess narrowing. 2. Slight unchanged bilateral L2-3 lateral recess narrowing secondary to small disc protrusion. 3. Otherwise unremarkable lumbar spine MR. Report Dictated By: Martín Salazar MD at 03/23/2018 1:31 PM Report E-Signed By: Martín Salazar MD at 03/23/2018 1:38 PM WSN:[id number]
[2018-03-23 14:00] VITALS: BP 120/62
[2018-03-23] MEDS ORDERED: PRED20TA6 PO (14:12)
== END 2018-03-23 14:35 | disposition home or self-care (01) ==
LOC: ER 12:05
DX: M54.42 Lumbago with sciatica, left side (principal); G89.29 Other chronic pain
CPT/HCPCS: 72148; 81001; 99283